=== PATIENT | male | born 1980 | race Caucasian/White ===

== ENCOUNTER → 2016-09-06 | Outpatient (CLI) | payer OTHER ==
--- NOTE | 2016-09-06 13:56 | DX ---
Right rib series History: Right rib pain and swelling. Findings: Marker denotes the area pain is at the costochondral junction inferiorly on the right. No e vidence for fracture. No evidence for aggressive osseous lesion. No other significant osseous abnorma lity. Impression: No evidence for right rib fracture.
--- NOTE | 2016-09-06 13:56 | DX ---
Chest, PA and lateral. HISTORY: Chest pain. Anterior right rib pain. FINDINGS: Heart size is within normal limits. Pulmonary vascularity appears normal. The lungs are lenard ar. No evidence for pleural effusion or pneumothorax. No significant osseous abnormality. Marker micky rohith the area pain the inferior anterior right costochondral junction. IMPRESSION: Normal chest x-ray.
== END ==
LOC: BMCIMAGING 12:44
DX: R07.81 Pleurodynia (principal)